=== PATIENT | male | born 2000 | race Caucasian/White ===

== ENCOUNTER 2020-02-06 11:50 | Emergency (ER) | payer BC, SELFPAY ==
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
[2020-02-06 12:01] VITALS: BP 138/88; PULSE 96; RESP 20; TEMP 36.9; O2SAT 100
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
== END 2020-02-06 13:00 | disposition home or self-care (01) ==
PROVIDERS: Emergency Provider Nurse Practitioner
DX: S92.252A Displaced fracture of navicular [scaphoid] of left foot, initial encounter for closed fracture (principal); V09.29XA Pedestrian injured in traffic accident involving other motor vehicles, initial encounter
CPT/HCPCS: 73630; 99203; G0463